=== PATIENT | male | born 1955 | race Caucasian/White ===

== ENCOUNTER 2017-05-09 15:47 | Emergency (ER) | payer MEDICAID ==
[2017-05-09 18:55] VITALS: BP 174/95
== END 2017-05-09 18:55 | disposition home or self-care (01) ==
LOC: ED 15:47
DX: K02.9 Dental caries, unspecified (principal); I16.0 Hypertensive urgency; E11.9 Type 2 diabetes mellitus without complications
CPT/HCPCS: 82962; J1885